=== PATIENT | female | born 1950 | race Caucasian/White ===

== ENCOUNTER 2021-09-14 13:49 | Outpatient (CLI) | payer MEDICARE, MEDICAID | END 2021-09-14 13:50 | disposition home or self-care (01) | LOC: LAB 13:49 | PROVIDERS: ATTEND Surgery | DX: R49.9 Unspecified voice and resonance disorder (principal); Z85.850 Personal history of malignant neoplasm of thyroid | CPT/HCPCS: 36415; 82565 ==

== ENCOUNTER 2021-09-15 08:36 | Outpatient (CLI) | payer MEDICARE, MEDICAID ==
[2021-09-15] MEDS ORDERED: IOVERSOL 320 100 ML VIAL IVP ONE ×2 (08:46→11:21)
[2021-09-15] MEDS ORDERED: IOVERSOL 320 50 ML VIAL PO ONE (11:22)
--- NOTE | 2021-09-15 18:22 | CT Report ---
PROCEDURE: SOFT TISSUE NECK W INDICATIONS: CHANGE IN VOICE, HIST OF THYROID CA, DYSPHAGIA CONTRAST: IV CONTRAST: Optiray 320 ml: 100 PO CONTRAST: *NO PO CONTRAST TECHNIQUE: After the administration of intravenous contrast, 3.0 mm axial sections acquired from the sella to th e aortic arch. Additional oblique axial 3.0 mm sections acquired through the pharynx. 3 mm thick co toni reformats were generated. For radiation dose reduction, the following was used: automated exp osure control, adjustment of mA and/or kV according to patient size. COMPARISON: None. FINDINGS: Image quality: Excellent. Lymph nodes: There are multiple shotty cervical chain lymph nodes. There is prominence of the jugulod igastric lymph nodes measuring up to 1.2 cm on the right. There is a level 3 lymph node measuring sli ghtly greater than 1 cm in short axis diameter (2; 93/139). Multilevel cervical degenerative changes. This is worse at C6-C7 where there is complete intervertebral disc space loss. Vessels: Visualized vasculature appears patent. Neck spaces: The oropharynx, nasopharynx, and pharynx demonstrate no mucosal lesions. The vocal cor ds, false vocal cords, pyriform sinuses, epiglottis, vallecula, and tongue base all appear normal. E xtramucosal spaces appear unremarkable. Glands: The parotid and submandibular glands appear normal. Right hemithyroidectomy. The left thyro id lobe is unremarkable. Miscellaneous: Visualized brain and orbits appear normal. Lung apices appear clear. Superficial so ft tissues appear normal. Bones: No suspicious bony lesions. There is opacification of the right frontal and ethmoid air cells with mild diffuse mucosal thickening of the left. There is mucosal thickening and air-fluid level of the right maxillary sinus. There is periosteal reaction. Periapical lucency with minimal residual ov erlying cortex adjacent to right maxillary molar implants. IMPRESSION: Status post right hemithyroidectomy without residual tissue. There are multiple mildly enlarged and s hotty cervical chain lymph nodes. This includes a slightly enlarged level 3 lymph node. Recommend con sideration for sampling if clinically warranted. Paranasal sinus disease with findings of acute on chronic sinusitis with air-fluid level in the right maxillary sinus and opacification of the right frontal and ethmoid air cells. Reviewed by: Max Higuera DO on 09/15/2021 5:21 PM AKDT Approved by: Max Higuera DO on 09/15/2021 5:21 PM TRICIA Station ID: [id number]
--- NOTE | 2021-09-15 18:32 | CT Report ---
PROCEDURE: CHEST W INDICATIONS: CHANGE IN VOICE, HIST OF THYROID CA, DYSPHAGIA CONTRAST: IV CONTRAST: Optiray 320 ml: 100 PO CONTRAST: *NO PO CONTRAST TECHNIQUE: After the administration of intravenous contrast, 1 mm axial images were acquired from the pulmonary apices through the posterior costophrenic angles. Axial 5 mm soft tissue kernel reconstructions were performed as well as 8 mm axial MIP and coronal and sagittal 5 mm reformations. For radiation dose reduction, the following was used: automated exposure control, adjustment of mA and/or kV according to patient size. COMPARISON: None. FINDINGS: Image quality: Excellent. Lungs and pleura: No acute air space opacities. No pleural effusions or pneumothorax. Central and peripheral airways are patent and normal in caliber. Mild emphysematous changes. 3-5 mm solid pulmon pillo nodules are noted throughout the lungs. 3 mm nodule in the right upper lobe (4; 62). 4-5 mm solid nodules in the right middle lobe (4; 125 and 141). 5 mm solid nodules in the left lower lobe (4; 180 and 225). Mediastinum: Heart size is normal. Mitral annular calcifications. No pericardial effusion. No medi astinal or hilar adenopathy by size criteria. Thoracic aorta and central pulmonary arteries are norm al in size. Esophagus is normal in caliber. No hiatal hernia. Bones and chest wall: No suspicious bony lesions. No vertebral body compression fractures. No axil kaylin or supraclavicular adenopathy by size criteria. Findings of right thyroid lobectomy. Abdomen: Diffuse decrease in attenuation of the liver with sparing in the gallbladder fossa. There is a large radiolucent gallstone within the gallbladder. No evidence of cholecystitis. No acute abnorma lity within the visualized upper abdomen. IMPRESSION: No acute intrathoracic abnormality. 3-5 mm solid nodules. Given mild emphysematous changes. Recommend repeat chest CT in approximately 1 year. Hepatic steatosis. Cholelithiasis. Postsurgical changes of right hemithyroidectomy Reviewed by: Max Higuera DO on 09/15/2021 5:30 PM TRICIA Approved by: Max Higuera DO on 09/15/2021 5:30 PM AKBANDAR Station ID: [id number]
== END 2021-09-15 08:37 | disposition home or self-care (01) ==
LOC: DI 08:36
PROVIDERS: ATTEND Surgery
DX: R49.9 Unspecified voice and resonance disorder (principal); Z85.850 Personal history of malignant neoplasm of thyroid; R13.10 Dysphagia, unspecified; R91.8 Other nonspecific abnormal finding of lung field; J43.9 Emphysema, unspecified; K76.0 Fatty (change of) liver, not elsewhere classified; K80.20 Calculus of gallbladder without cholecystitis without obstruction; E89.0 Postprocedural hypothyroidism; R59.0 Localized enlarged lymph nodes; J01.20 Acute ethmoidal sinusitis, unspecified; J01.10 Acute frontal sinusitis, unspecified; J01.00 Acute maxillary sinusitis, unspecified; J32.2 Chronic ethmoidal sinusitis; J32.1 Chronic frontal sinusitis; J32.0 Chronic maxillary sinusitis
CPT/HCPCS: 70491; 71260; Q9967

== ENCOUNTER 2021-11-13 08:28 | Day surgery (SDC) | payer MEDICARE, MEDICAID ==
[2021-11-13] MEDS ORDERED: LACTATED RINGERS 1,000 ML IV ONE (08:46)
--- NOTE | 2021-11-13 09:43 | ANESTHESIA ---
Pre-Anesthesia VS, & Labs - Diagnosis dysphagia, history of thyroid cancer - Procedure EGD Vital Signs: Temp Pulse Resp BP Pulse Ox 37.1 C 83 18 173/98 H 96 11/13/21 08:47 11/13/21 08:47 11/13/21 08:47 11/13/21 08:47 11/13/21 08:47 Height: 5 ft 2 in Weight (kg): 95 kg Body Mass Index: 38.2 BMI Classification: Obese - NPO >8 hours - Is Patient ?: No Home Medications and Allergies Home Medications: Ambulatory Orders Ibuprofen 1 tab PO PRN PRN 11/13/21 Levothyroxine [Synthroid] 225 mcg PO QDAC 11/13/21 Ibuprofen 1 tab PO PRN PRN 11/13/21 Levothyroxine [Synthroid] 225 mcg PO QDAC 11/13/21 Allergies/Adverse Reactions: Allergies Allergy/AdvReac Type Severity Reaction Status Date / Time erythromycin base Allergy Anaphylaxis Verified 11/13/21 09:14 Penicillins Allergy Anaphylaxis Verified 11/13/21 09:14 Anes History & Medical History - Anesthetic History Anesthesia Complications: reports: No previous complications - Medical History Cardiovascular: reports: None Pulmonary: reports: None Gastrointestinal: reports: GERD Urinary: reports: Incontinence, Frequency Neuro: reports: None Musculoskeletal: reports: Osteoarthritis Endocrine/Autoimmune: reports: HyPOthyroidism Blood Disorders: reports: None Skin: reports: None Smoking Status: Never smoker Psychosocial: reports: Anxiety History of Cancer?: Yes (thyroid, no chemo or radiation.) - Surgical History General: reports: Other (thyroidectomy) Gynecologic: reports: section Orthopedic: reports: Other Exam General: Alert, Oriented x3, Cooperative, No acute distress Dental: Poor dentition Mouth Openin Fingerbreadth Neck Mobility: Normal Mallampati classification: III Thyromental Distance: 4-6 cm Mental/Cognitive Status: Alert/Oriented X3, Normal for patient Plan Anesthesia Type: Total IV Consent for Procedure(s) Verified and Reviewed: Yes Code Status: Attempt Resuscitation ASA classification: 2-Mild systemic disease Is this case an emergency?: No
[2021-11-13] MEDS ORDERED: PROPOFOL 200 MG/20 ML VIAL IVP ONE (10:28)
[2021-11-13] MEDS ORDERED: MIDAZOLAM 2 MG/2 ML VIAL ONE (10:28)
[2021-11-13] MEDS ORDERED: LIDOCAINE-MPF 2% 5 ML VIAL ONE (10:28)
[2021-11-13] MEDS ORDERED: LACTATED RINGERS 500 ML IV ONE (10:57)
--- NOTE | 2021-11-13 11:20 | ANESTHESIA POST OP EVALUATION ---
Anesthesia Post Eval - Post Anesthesia Eval Vitals: Last Vital Signs Temp 37 C 11/13/21 10:55 Pulse 75 11/13/21 10:55 Resp 16 11/13/21 10:55 BP 122/73 11/13/21 10:55 Pulse Ox 97 11/13/21 10:55 CV Function Including HR & BP: Stable Pain Control: Satisfactory Nausea & Vomiting: Negative Mental Status: Baseline Respiratory Status: Airway Patent Hydration Status: Satisfactory Anesthesia Complications: None
[2021-11-13 11:57] VITALS: BP 140/66
== END 2021-11-13 08:29 | disposition home or self-care (01) ==
LOC: SDS 08:28
PROVIDERS: ATTEND Surgery
PROC: 0DB78ZX Excision of Stomach, Pylorus, Via Natural or Artificial Opening Endoscopic, Diagnostic (ICD-10-PCS; 2021-11-13)
PROC: 0DB68ZX Excision of Stomach, Via Natural or Artificial Opening Endoscopic, Diagnostic (ICD-10-PCS; 2021-11-13)
PROC: 0DB58ZX Excision of Esophagus, Via Natural or Artificial Opening Endoscopic, Diagnostic (ICD-10-PCS; 2021-11-13)
PROC: 0DB48ZX Excision of Esophagogastric Junction, Via Natural or Artificial Opening Endoscopic, Diagnostic (ICD-10-PCS; 2021-11-13)
PROC: 0DB98ZX Excision of Duodenum, Via Natural or Artificial Opening Endoscopic, Diagnostic (ICD-10-PCS; principal; 2021-11-13 09:45)
DX: R13.10 Dysphagia, unspecified (principal); K31.9 Disease of stomach and duodenum, unspecified; K29.70 Gastritis, unspecified, without bleeding; K31.7 Polyp of stomach and duodenum; Z85.850 Personal history of malignant neoplasm of thyroid; E66.9 Obesity, unspecified; Z68.38 Body mass index [BMI] 38.0-38.9, adult; F41.9 Anxiety disorder, unspecified; Z79.899 Other long term (current) drug therapy; R49.9 Unspecified voice and resonance disorder
CPT/HCPCS: 43239; J7120

== ENCOUNTER 2022-02-07 07:00 | Outpatient (CLI) | payer MEDICARE, MEDICAID ==
[2022-02-07 20:28] LABS: BILIRUBIN,URINE NEGATIVE (NEGATIVE); GLUCOSE, URINE (UA) >=1000 mg/dL (NEGATIVE); KETONES,URINE (UA) NEGATIVE (NEGATIVE); LEUKOCYTE ESTERASE, URINE NEGATIVE (NEGATIVE); NITRITE,URINE NEGATIVE (NEGATIVE); OCCULT BLOOD,URINE NEGATIVE (NEGATIVE); PH,URINE 5.5 PH (5.0-7.5); PROTEIN,URINE NEGATIVE (NEGATIVE); UROBILINOGEN,URINE 0.2 (NORMAL) E.U./dL (NORMAL)
[2022-02-07 20:30] LABS: CLARITY,URINE CLEAR (CLEAR)
[2022-02-07 20:42] LABS: BACTERIA,URINE None Seen /HPF (None Seen); RBC,URINE 0-5 /HPF (0-5); SQUAMOUS EPITHELIAL CELL,UR RARE Squamous (<= Few); WBC,URINE 0-3 /HPF (0-5)
== END 2022-02-07 23:59 | disposition home or self-care (01) ==
LOC: LAB 07:00
PROVIDERS: ATTEND Internal Medicine
DX: R30.0 Dysuria (principal)
CPT/HCPCS: 81001; 87086

== ENCOUNTER 2022-02-19 12:46 | Outpatient (CLI) | payer MEDICARE, MEDICAID ==
[2022-02-19 14:51] LABS: BASOPHILS # (AUTO) 0.1 10^3/uL (0.0-0.1); BASOPHILS % (AUTO) 0.7 %; EOSINOPHILS # (AUTO) 0.1 10^3/uL (0.0-0.7); EOSINOPHILS % (AUTO) 1.1 %; HCT - HEMATOCRIT 44.7 % (37.0-47.0); HGB - HEMOGLOBIN 15.4 g/dL (12.0-16.0); LYMPHOCYTES # (AUTO) 1.7 10^3/uL (1.5-3.5); LYMPHOCYTES % (AUTO) 23.9 %; MEAN CORPUSCULAR HEMOGLOBIN 29.6 pg (27.0-31.0); MEAN CORPUSCULAR HGB CONC 34.5 g/dL (32.0-36.0); MEAN PLATELET VOLUME 9.1 fL (7.9-10.8); MONOCYTES # (AUTO) 0.7 10^3/uL (0.0-1.0); MONOCYTES % (AUTO) 9.2 %; NEUTROPHILS # (AUTO) 4.7 10^3/uL (1.5-6.6); NEUTROPHILS % (AUTO) 64.4 %; PLT - PLATELET COUNT 336 10^3/uL (130-450); RED CELL DISTRIBUTION WIDTH 12.7 % (12.0-15.0); WHITE BLOOD COUNT 7.3 x10^3/uL (4.8-10.8)
[2022-02-19 15:33] LABS: ALBUMIN 3.9 g/dL (3.2-5.5); ALBUMIN/GLOBULIN RATIO 1.2 (1.0-2.2); ALKALINE PHOSPHATASE 96 IU/L (42-121); ALT ALANINE AMINOTRANSFERASE 32 IU/L (10-60); AST ASPARTATE AMINOTRANSFERASE 24 IU/L (10-42); BILIRUBIN,TOTAL 0.8 mg/dL (0.2-1.0); BUN - BLOOD UREA NITROGEN 24 mg/dL (6-20); CALCIUM 8.9 mg/dL (8.5-10.3); CARBON DIOXIDE - CO2 26 mmol/L (21-32); CHLORIDE 95 mmol/L (101-111); CHOL/HDL RATIO 5.5 (<4.4); CHOLESTEROL 213 mg/dL; CREATININE 0.7 mg/dL (0.4-1.0); GFR - MDRD 83 (>89); GLUCOSE 380 mg/dL (70-100); HDL CHOLESTEROL 39 mg/dL; LDL CHOLESTEROL,CALCULATED 132 mg/dL; LDL/HDL RATIO 3.4 (<4.4); POTASSIUM 4.6 mmol/L (3.5-5.0); SODIUM 131 mmol/L (135-145); TOTAL PROTEIN 7.2 g/dL (6.7-8.2); TRIGLYCERIDES 209 mg/dL; VLDL CHOLESTEROL 42 mg/dL
[2022-02-19 15:40] LABS: THYROID STIMULATING HORMONE 0.98 uIU/mL (0.34-5.60)
[2022-02-19 20:23] LABS: ESTIMATED AVERAGE GLUCOSE 390 mg/dL (70-100); HEMOGLOBIN A1c% 15.2 % (4.27-6.07)
== END 2022-02-19 12:47 | disposition home or self-care (01) ==
LOC: LAB.S 12:46
PROVIDERS: ATTEND Internal Medicine
DX: E11.9 Type 2 diabetes mellitus without complications (principal); E03.9 Hypothyroidism, unspecified
CPT/HCPCS: 36415; 80053; 80061; 83036; 83721; 84443; 85025

== ENCOUNTER 2022-09-28 10:55 | Outpatient (CLI) | payer MEDICARE, MEDICAID ==
[2022-09-28 11:26] LABS: CHOL/HDL RATIO 5.2 (<4.4); CHOLESTEROL 203 mg/dL; HDL CHOLESTEROL 39 mg/dL; LDL CHOLESTEROL,CALCULATED 122 mg/dL; LDL/HDL RATIO 3.1 (<4.4); TRIGLYCERIDES 211 mg/dL; VLDL CHOLESTEROL 42 mg/dL
[2022-09-29 12:03] LABS: ESTIMATED AVERAGE GLUCOSE 289 mg/dL (70-100); HEMOGLOBIN A1c% 11.7 % (4.27-6.07)
== END 2022-09-28 10:56 | disposition home or self-care (01) ==
LOC: LAB 10:55
PROVIDERS: ATTEND Registered Nurse
DX: I10 Essential (primary) hypertension (principal); E11.49 Type 2 diabetes mellitus with other diabetic neurological complication; Z79.899 Other long term (current) drug therapy
CPT/HCPCS: 36415; 80061; 83036; 83721

== ENCOUNTER 2023-04-18 10:07 | Outpatient (CLI) | payer MEDICARE, MEDICAID ==
[2023-04-18 15:16] LABS: ALBUMIN 3.6 g/dL (3.2-5.5); ALKALINE PHOSPHATASE 109 IU/L (42-121); ALT ALANINE AMINOTRANSFERASE 16 IU/L (10-60); AST ASPARTATE AMINOTRANSFERASE 14 IU/L (10-42); BILIRUBIN,TOTAL 0.5 mg/dL (0.2-1.0); BUN - BLOOD UREA NITROGEN 25 mg/dL (6-20); CALCIUM 8.9 mg/dL (8.5-10.3); CARBON DIOXIDE - CO2 27 mmol/L (21-32); CHLORIDE 99 mmol/L (101-111); CHOLESTEROL 186 mg/dL; CREATININE 0.7 mg/dL (0.4-1.0); GFR - MDRD 83 (>89); GLUCOSE 244 mg/dL (70-100); HDL CHOLESTEROL 47 mg/dL; LDL CHOLESTEROL,CALCULATED 110 mg/dL; LDL/HDL RATIO 2.3 (<4.4); POTASSIUM 4.5 mmol/L (3.5-5.0); SODIUM 135 mmol/L (135-145); TOTAL PROTEIN 7.2 g/dL (6.7-8.2); TRIGLYCERIDES 144 mg/dL; VLDL CHOLESTEROL 29 mg/dL
[2023-04-18 15:38] LABS: CREATININE,URINE 49.1 mg/dL; MICROALBUM/CREATININE RATIO,UR 12.2 ug/mg (<30.0); MICROALBUMIN,URINE 0.6 mg/dL (0-300.0)
[2023-04-18 20:34] LABS: ESTIMATED AVERAGE GLUCOSE 243 mg/dL (70-100); HEMOGLOBIN A1c% 10.1 % (4.27-6.07)
== END 2023-04-18 10:08 | disposition home or self-care (01) ==
LOC: LAB.S 10:07
PROVIDERS: ATTEND Internal Medicine
DX: E11.65 Type 2 diabetes mellitus with hyperglycemia (principal); E03.9 Hypothyroidism, unspecified
CPT/HCPCS: 36415; 80053; 80061; 82043; 82570; 83036; 83721; 84443

== ENCOUNTER 2023-09-18 08:26 | Outpatient (CLI) | payer MEDICARE, MEDICAID ==
[2023-09-18 15:20] LABS: THYROID STIMULATING HORMONE 0.02 uIU/mL (0.34-5.60)
[2023-09-18 15:26] LABS: ALBUMIN 4.1 g/dL (3.2-5.5); ALBUMIN/GLOBULIN RATIO 1.5 (1.0-2.2); BILIRUBIN,TOTAL 0.6 mg/dL (0.2-1.0); CALCIUM 9.3 mg/dL (8.5-10.3); CREATININE 0.8 mg/dL (0.6-1.3); POTASSIUM 4.4 mmol/L (3.5-4.5); TOTAL PROTEIN 6.8 g/dL (6.4-8.9)
[2023-09-18 21:01] LABS: ESTIMATED AVERAGE GLUCOSE 235 mg/dL (70-100); HEMOGLOBIN A1c% 9.8 % (4.27-6.07)
== END 2023-09-18 08:27 | disposition home or self-care (01) ==
LOC: LAB.S 08:26
PROVIDERS: ATTEND Internal Medicine
DX: E11.65 Type 2 diabetes mellitus with hyperglycemia (principal); E03.9 Hypothyroidism, unspecified
CPT/HCPCS: 36415; 80053; 83036; 84439; 84443; 84481

== ENCOUNTER 2024-01-29 12:03 | Outpatient (CLI) | payer MEDICAID, MEDICARE ==
--- NOTE | 2024-01-29 21:23 | XRAY Report ---
PROCEDURE: Shoulder 2+V LT INDICATIONS: REPEATED FALLS,DECREASED MOBILITY TECHNIQUE: 3 views of the shoulder were acquired. COMPARISON: None. FINDINGS: Bones: No fractures or dislocations. No suspicious bony lesions. Visualized ribs appear intact. Moderate to severe acromioclavicular degenerative narrowing. Mild to moderate glenohumeral narrowing. Soft tissues: No suspicious soft tissue calcifications. The visualized lungs are within normal limi ts. IMPRESSION: Acromioclavicular and glenohumeral arthritic change. Reviewed by: Yolis Martinez MD on 01/29/2024 9:21 PM PST Approved by: Yolis Martinez MD on 01/29/2024 9:21 PM PST Station ID: [id number]
--- NOTE | 2024-01-29 21:24 | XRAY Report ---
PROCEDURE: Knee 4+V LT INDICATIONS: REPEATED FALLS,DECREASED MOBILITY TECHNIQUE: 4 views of the knee(s) were acquired. COMPARISON: None. FINDINGS: Bones: No fractures or dislocations. No suspicious bony lesions. Moderate to severe medial as wel l as moderate lateral patellofemoral compartment narrowing. Minimal particular osteophytes. No erosio ns. Soft tissues: Minimal to mild knee joint effusion. No suspicious soft tissue calcifications or collin s. IMPRESSION: Tricompartmental arthritic change most severe medially. No visualized acute fracture or dislocation. However, occult injury cannot be excluded. Recommend thom rt interval imaging follow-up in 7-10 days as clinically indicated for additional evaluation. Reviewed by: Yolis Martinez MD on 01/29/2024 9:22 PM PST Approved by: Yolis Martinez MD on 01/29/2024 9:22 PM PST Station ID: [id number]
== END 2024-01-29 12:04 | disposition home or self-care (01) ==
LOC: DI.S 12:03
PROVIDERS: ATTEND Internal Medicine
DX: M19.012 Primary osteoarthritis, left shoulder (principal); M17.12 Unilateral primary osteoarthritis, left knee

== ENCOUNTER 2024-03-04 10:43 | Outpatient (CLI) | payer MEDICARE ==
[2024-03-04 14:44] LABS: BASOPHILS % (AUTO) 0.7 %; EOSINOPHILS # (AUTO) 0.2 10^3/uL (0.0-0.7); EOSINOPHILS % (AUTO) 2.5 %; HCT - HEMATOCRIT 46.7 % (37.0-47.0); HGB - HEMOGLOBIN 15.1 g/dL (12.0-16.0); LYMPHOCYTES # (AUTO) 1.4 10^3/uL (1.5-3.5); LYMPHOCYTES % (AUTO) 22.7 %; MEAN CORPUSCULAR HEMOGLOBIN 28.2 pg (27.0-31.0); MEAN CORPUSCULAR HGB CONC 32.3 g/dL (32.0-36.0); MEAN CORPUSCULAR VOLUME 87.1 fL (81.0-99.0); MEAN PLATELET VOLUME 8.8 fL (7.9-10.8); MONOCYTES # (AUTO) 0.6 10^3/uL (0.0-1.0); MONOCYTES % (AUTO) 9.3 %; NEUTROPHILS # (AUTO) 3.9 10^3/uL (1.5-6.6); NEUTROPHILS % (AUTO) 64.5 %; PLT - PLATELET COUNT 319 10^3/uL (130-450); RED BLOOD COUNT 5.36 10^6/uL (4.20-5.40)
[2024-03-04 15:02] LABS: ALBUMIN/GLOBULIN RATIO 1.1 (1.0-2.2); BILIRUBIN,TOTAL 0.6 mg/dL (0.2-1.0); CALCIUM 9.3 mg/dL (8.5-10.3); CREATININE 0.7 mg/dL (0.6-1.3); POTASSIUM 4.3 mmol/L (3.5-4.5); TOTAL PROTEIN 7.5 g/dL (6.4-8.9)
[2024-03-04 15:10] LABS: THYROID STIMULATING HORMONE 0.03 uIU/mL (0.34-5.60)
[2024-03-04 20:53] LABS: ESTIMATED AVERAGE GLUCOSE 249 mg/dL (70-100); HEMOGLOBIN A1c% 10.3 % (4.27-6.07)
== END 2024-03-04 10:44 | disposition home or self-care (01) ==
LOC: LAB.S 10:43
PROVIDERS: ATTEND Internal Medicine
DX: E11.65 Type 2 diabetes mellitus with hyperglycemia (principal); E03.9 Hypothyroidism, unspecified; I10 Essential (primary) hypertension
CPT/HCPCS: 36415; 80053; 83036; 84439; 84443; 84481; 85025